=== PATIENT | female | born 2000 | race Caucasian/White ===

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

== ENCOUNTER 2021-09-18 13:11 | Inpatient (IN) | payer BC ==
[~2021-09-18] VITALS: Ht 157.5 cm; Wt 54.9 kg
[2021-09-18] MEDS ORDERED: LATU80TA2 PO (13:36)
[2021-09-18] MEDS ORDERED: ISIB1TAB PO (13:36)
[2021-09-18 14:02] LABS: HEMATOCRIT 38.6 % (36.0-47.0); HEMOGLOBIN 13.1 g/dl (12.0-15.5); MEAN CORPUSCULAR HEMOGLOBIN 29.8 pg (27.0-33.0); MEAN CORPUSCULAR HGB CONC 33.9 g/dl (32.0-36.5); MEAN CORPUSCULAR VOLUME 87.7 fl (80.0-96.0); PLATELET COUNT, AUTOMATED 397 10^3/uL (150-450); WHITE BLOOD COUNT 10.5 10^3/uL (4.0-10.0)
[2021-09-18 14:41] LABS: ALBUMIN 3.9 GM/DL (3.2-5.2); ALT/SGPT 14 U/L (12-78); AMPHETAMINES LEVEL URINE NEGATIVE (NEGATIVE); BARBITURATES URINE NEGATIVE (NEGATIVE); BENZODIAZEPINES URINE NEGATIVE (NEGATIVE); BILIRUBIN,DIRECT 0.1 MG/DL (0.0-0.2); BILIRUBIN,TOTAL 0.5 MG/DL (0.2-1.0); BLOOD UREA NITROGEN 7 MG/DL (7-18); CALCIUM LEVEL 9.8 MG/DL (8.5-10.1); CANNABINOIDS URINE POSITIVE (NEGATIVE); CARBON DIOXIDE LEVEL 29 MEQ/L (21-32); CHLORIDE LEVEL 106 MEQ/L (98-107); COCAINE METABOLITE URINE NEGATIVE (NEGATIVE); CREATININE FOR GFR 0.65 MG/DL (0.55-1.30); GLUCOSE, FASTING 84 MG/DL (70-100); METHADONE URINE NEGATIVE (NEGATIVE); OPIATES URINE NEGATIVE (NEGATIVE); PHENCYCLIDINE URINE NEGATIVE (NEGATIVE); POTASSIUM SERUM 4.1 MEQ/L (3.5-5.1); RSV AMPLIFICATION NEGATIVE (NEGATIVE); SODIUM LEVEL 140 MEQ/L (136-145); TOTAL PROTEIN 7.3 GM/DL (6.4-8.2)
[2021-09-18 14:42] LABS: ACETAMINOPHEN LEVEL < 2.0 UG/ML (10.0-30.0); ETHYL ALCOHOL (ETHANOL) < 0.003 % (0.000-0.010); SALICYLATE LEVEL < 1.7 MG/DL (5.0-30.0)
[2021-09-18 14:46] LABS: HCG, SERUM QUALITATIVE NEGATIVE (NEGATIVE)
[2021-09-18] MEDS ORDERED: HOME MED LIST COMPLETE! XX SCH (18:40)
[2021-09-19] MEDS ORDERED: ACETAMINOPHEN TAB 650MG DOSE (2X325MG) PO PRN (20:30)
[2021-09-19] MEDS ORDERED: NICOTINE 21MG/24HR 1 EA TRANSDERMAL TD PRN (20:30)
[2021-09-19] MEDS ORDERED: MOM 30ML SUSPENSION UDC PO PRN (20:30)
[2021-09-19] MEDS ORDERED: LURASIDONE HCL 40MG TAB (LATUDA) PO SCH ×2 (21:00)
[2021-09-19] MEDS ORDERED: ENTER DRUG NAME HERE (PATIENT'S OWN MED) PO SCH (21:00)
[2021-09-19] MEDS: traZODone 50 MG TAB PO PRN (22:44)
[2021-09-19 22:52] VITALS: BP 126/89
[2021-09-20 06:33] VITALS: BP 117/70
[2021-09-20] MEDS ORDERED: INFLUENZA QUADRIVALENT PF VACCINE 0.5ML SYRINGE IM.IMMUN ONE (09:00)
[2021-09-20] MEDS ORDERED: ISIBLOOM PO SCH (09:00)
[2021-09-20 16:52] VITALS: BP 116/70
[2021-09-20] MEDS: LURASIDONE HCL 40MG TAB (LATUDA) PO SCH (17:23)
[2021-09-20] MEDS: LURASIDONE 20 MG TAB (LATUDA) PO SCH (17:23)
[2021-09-20] MEDS ORDERED: ONDANSETRON 4MG TAB PO ONE (18:45)
[2021-09-20] MEDS: hydrOXYzine 50 MG TAB PO PRN (19:50)
[2021-09-20] MEDS: busPIRone 5 MG TAB PO SCH (21:53)
[2021-09-20] MEDS: traZODone 50 MG TAB PO PRN (21:53)
[2021-09-21 07:24] VITALS: BP 118/58
[2021-09-21] MEDS: busPIRone 5 MG TAB PO SCH ×2 (09:41→21:56)
[2021-09-21] MEDS: hydrOXYzine 50 MG TAB PO PRN ×2 (13:24→21:57)
[2021-09-21 17:46] VITALS: BP 114/67
[2021-09-21] MEDS: LURASIDONE HCL 40MG TAB (LATUDA) PO SCH (17:57)
[2021-09-21] MEDS: LURASIDONE 20 MG TAB (LATUDA) PO SCH (17:57)
[2021-09-21] MEDS: ISIBLOOM PO SCH (21:56)
[2021-09-21] MEDS: traZODone 50 MG TAB PO PRN (21:57)
[2021-09-22 07:05] VITALS: BP 115/65
[2021-09-22] MEDS: busPIRone 5 MG TAB PO SCH ×2 (08:43→20:38)
[2021-09-22] MEDS: hydrOXYzine 50 MG TAB PO PRN ×2 (09:49→16:48)
[2021-09-22 16:49] VITALS: BP 117/70
[2021-09-22] MEDS: LURASIDONE HCL 40MG TAB (LATUDA) PO SCH (18:04)
[2021-09-22] MEDS: LURASIDONE 20 MG TAB (LATUDA) PO SCH (18:04)
[2021-09-22] MEDS: ISIBLOOM PO SCH (20:38)
[2021-09-22] MEDS: traZODone 50 MG TAB PO PRN (20:39)
[2021-09-23 07:04] VITALS: BP 112/54
[2021-09-23] MEDS: busPIRone 5 MG TAB PO SCH (08:23)
[2021-09-23] MEDS: hydrOXYzine 50 MG TAB PO PRN ×2 (11:42→17:55)
[2021-09-23 16:39] VITALS: BP 114/71
[2021-09-23] MEDS: LURASIDONE HCL 40MG TAB (LATUDA) PO SCH (17:55)
[2021-09-23] MEDS: ISIBLOOM PO SCH (20:16)
[2021-09-23] MEDS: busPIRone 10 MG TAB PO SCH (20:16)
[2021-09-23] MEDS: traZODone 50 MG TAB PO PRN (20:16)
[2021-09-24 07:10] VITALS: BP 102/57
[2021-09-24] MEDS: busPIRone 10 MG TAB PO SCH ×2 (08:16→20:09)
[2021-09-24] MEDS ORDERED: PRAZOSIN 1 MG CAP PO PRN (10:35)
[2021-09-24] MEDS: hydrOXYzine 50 MG TAB PO PRN (11:16)
[2021-09-24 16:40] VITALS: BP 122/81
[2021-09-24] MEDS: LURASIDONE HCL 40MG TAB (LATUDA) PO SCH (17:39)
[2021-09-24 20:09] VITALS: BP 122/81
[2021-09-24] MEDS: ISIBLOOM PO SCH (20:09)
[2021-09-24] MEDS: traZODone 50 MG TAB PO PRN (20:09)
[2021-09-25 06:34] VITALS: BP 114/58
[2021-09-25] MEDS: busPIRone 10 MG TAB PO SCH (08:20)
[2021-09-25] MEDS: hydrOXYzine 50 MG TAB PO PRN (10:00)
[2021-09-25] MEDS ORDERED: TRAZ-252 PO (14:24)
[2021-09-25] MEDS ORDERED: LATU40TA2 PO (14:24)
[2021-09-25] MEDS ORDERED: BUSP10TA PO (14:24)
[2021-09-25] MEDS ORDERED: NICO21PAT TD (14:24)
[2021-09-25] MEDS ORDERED: HYDR50TA70 PO (14:24)
[2021-09-25] MEDS ORDERED: MINI1CAP PO (14:24)
== END 2021-09-25 16:08 | disposition home or self-care (01) | DRG 753 ==
LOC: M ED 13:11 → M ED INP 09-19 20:27 → M PSY 09-19 22:17
PROVIDERS: ADMIT Psychiatry & Neurology Psychiatry; ATTEND Psychiatry & Neurology Psychiatry
DX: F31.81 Bipolar II disorder (principal); F60.3 Borderline personality disorder; F17.290 Nicotine dependence, other tobacco product, uncomplicated; F41.9 Anxiety disorder, unspecified; Z91.52 Personal history of nonsuicidal self-harm; R45.851 Suicidal ideations; Z63.0 Problems in relationship with spouse or partner; Z20.822 Contact with and (suspected) exposure to COVID-19; Z79.899 Other long term (current) drug therapy

== ENCOUNTER → 2022-03-30 | Outpatient (REF) | payer BC ==
[~2022-03-30] MED LIST: BUSP10TA PO; HYDR50TA70 PO; ISIB1TAB PO; LATU40TA2 PO; LATU80TA2 PO; MINI1CAP PO; NICO21PAT TD; TRAZ-252 PO
[2022-03-30 12:33] LABS: HEMATOCRIT 40.8 % (36.0-47.0); HEMOGLOBIN 13.4 g/dl (12.0-15.5); MEAN CORPUSCULAR HEMOGLOBIN 29.6 pg (27.0-33.0); MEAN CORPUSCULAR HGB CONC 32.8 g/dl (32.0-36.5); MEAN CORPUSCULAR VOLUME 90.3 fl (80.0-96.0); PLATELET COUNT, AUTOMATED 404 10^3/uL (150-450); RED BLOOD COUNT 4.52 10^6/uL (4.00-5.40); WHITE BLOOD COUNT 10.6 10^3/uL (4.0-10.0)
[2022-03-30 12:35] LABS: ALBUMIN 3.6 G/DL (3.2-5.2); ALKALINE PHOSPHATASE 51 U/L (46-116); ALT/SGPT 12 U/L (7.0-40); AST/SGOT 15 U/L (<34); BILIRUBIN,TOTAL 0.4 MG/DL (0.3-1.2); BLOOD UREA NITROGEN 10 MG/DL (9-23); CALCIUM LEVEL 9.8 MG/DL (8.5-10.1); CARBON DIOXIDE LEVEL 25 MMOL/L (20-31); CHLORIDE LEVEL 104 MMOL/L (98-107); CREATININE FOR GFR 0.58 MG/DL (0.55-1.30); GLUCOSE, FASTING 87 MG/DL (60-100); LITHIUM LEVEL < 1.00 MEQ/L (0.60-1.20); POTASSIUM SERUM 4.7 MMOL/L (3.5-5.1); SODIUM LEVEL 140 MMOL/L (136-145)
[2022-03-30 12:36] LABS: THYROID STIMULATING HORMONE 4.188 uIU/ML (0.48-4.17)
[2022-03-30 12:37] LABS: FREE T4 1.24 NG/DL (0.83-1.43)
== END ==
LOC: M LABDRAWC 11:49
PROVIDERS: ATTEND Psychiatry & Neurology Psychiatry
DX: F31.81 Bipolar II disorder (principal); F12.99 Cannabis use, unspecified with unspecified cannabis-induced disorder

== ENCOUNTER → 2022-04-13 | Outpatient (REF) | payer BC | LOC: M LABDRAWC 11:35 | PROVIDERS: ATTEND Psychiatry & Neurology Psychiatry | DX: F31.81 Bipolar II disorder (principal); F12.99 Cannabis use, unspecified with unspecified cannabis-induced disorder ==

== ENCOUNTER 2022-06-08 14:34 | Emergency (ER) | payer BC ==
[~2022-06-08] VITALS: Ht 157.5 cm; Wt 59.8 kg
[2022-06-08] MEDS ORDERED: LITH300C PO (14:52)
[2022-06-08] MEDS ORDERED: LITH150C PO (14:52)
[2022-06-08] MEDS ORDERED: HOME MED LIST COMPLETE! XX SCH (16:15)
[2022-06-08 17:08] VITALS: BP 145/90
== END 2022-06-08 17:08 | disposition home or self-care (01) ==
LOC: M ED 14:34
DX: F31.9 Bipolar disorder, unspecified (principal); F12.10 Cannabis abuse, uncomplicated; Z79.83 Long term (current) use of bisphosphonates; Z79.899 Other long term (current) drug therapy

== ENCOUNTER 2022-06-17 11:44 | Inpatient (IN) | payer BC ==
[~2022-06-17] VITALS: Ht 157.5 cm; Wt 51.8 kg
[~2022-06-17 11:44] MED LIST changes: +LITH150C PO; +LITH300C PO; +LITHIUM CARBONATE 150 MG CAP PO SCH
[2022-06-17 12:17] LABS: HEMATOCRIT 37.3 % (36.0-47.0); HEMOGLOBIN 12.5 g/dl (12.0-15.5); MEAN CORPUSCULAR HEMOGLOBIN 30.3 pg (27.0-33.0); MEAN CORPUSCULAR HGB CONC 33.5 g/dl (32.0-36.5); MEAN CORPUSCULAR VOLUME 90.3 fl (80.0-96.0); PLATELET COUNT, AUTOMATED 375 10^3/uL (150-450); RED BLOOD COUNT 4.13 10^6/uL (4.00-5.40); WHITE BLOOD COUNT 10.5 10^3/uL (4.0-10.0)
[2022-06-17] MEDS ORDERED: HOME MED LIST COMPLETE! XX SCH (12:45)
[2022-06-17 12:48] LABS: ETHYL ALCOHOL (ETHANOL) < 0.003 % (0.000-0.010)
[2022-06-17 12:50] LABS: ACETAMINOPHEN LEVEL < 2.0 UG/ML (10.0-20.0); SALICYLATE LEVEL < 3.0 MG/DL (<30)
[2022-06-17 12:52] LABS: HCG, SERUM QUALITATIVE NEGATIVE (NEGATIVE)
[2022-06-17 12:54] LABS: ALBUMIN 3.7 G/DL (3.2-5.2); ALKALINE PHOSPHATASE 51 U/L (46-116); ALT/SGPT 11 U/L (7.0-40); AST/SGOT 11 U/L (<34); BILIRUBIN,DIRECT 0.2 MG/DL (<0.4); BILIRUBIN,TOTAL 0.6 MG/DL (0.3-1.2); BLOOD UREA NITROGEN 8 MG/DL (9-23); CALCIUM LEVEL 9.5 MG/DL (8.5-10.1); CARBON DIOXIDE LEVEL 26 MMOL/L (20-31); CHLORIDE LEVEL 100 MMOL/L (98-107); CREATININE FOR GFR 0.58 MG/DL (0.55-1.30); GLOMERULAR FILTRATION RATE > 60.0 (>60); GLUCOSE, FASTING 148 MG/DL (60-100); POTASSIUM SERUM 3.4 MMOL/L (3.5-5.1); SODIUM LEVEL 135 MMOL/L (136-145); TOTAL PROTEIN 6.7 G/DL (5.7-8.2)
[2022-06-17 12:57] LABS: THYROID STIMULATING HORMONE 1.643 uIU/ML (0.55-4.78)
[2022-06-17 13:12] LABS: AMPHETAMINES LEVEL URINE NEGATIVE (NEGATIVE); BARBITURATES URINE NEGATIVE (NEGATIVE); BENZODIAZEPINES URINE NEGATIVE (NEGATIVE); COCAINE METABOLITE URINE NEGATIVE (NEGATIVE); METHADONE URINE NEGATIVE (NEGATIVE); OPIATES URINE NEGATIVE (NEGATIVE); PHENCYCLIDINE URINE NEGATIVE (NEGATIVE)
[2022-06-17 13:17] LABS: CANNABINOIDS URINE POSITIVE (NEGATIVE)
[2022-06-17 13:44] LABS: LITHIUM LEVEL 1.31 MMOL/L (0.60-1.20)
[2022-06-17] MEDS ORDERED: LITHIUM CARBONATE 150 MG CAP PO SCH (21:00)
[2022-06-17] MEDS ORDERED: ACETAMINOPHEN TAB 650MG DOSE (2X325MG) PO PRN (21:55)
[2022-06-17] MEDS ORDERED: MAALOX 30 ML SUSP *UDC PO PRN (21:55)
[2022-06-17] MEDS ORDERED: MOM 30ML SUSPENSION UDC PO PRN (21:55)
[2022-06-17] MEDS ORDERED: OLANZapine ORAL DISINTEGRATING TAB 5MG PO PRN (21:55)
[2022-06-17 23:55] VITALS: BP 138/96
[2022-06-18 06:56] VITALS: BP 130/68
[2022-06-18] MEDS: LITHIUM CARBONATE 300 MG CAP PO SCH ×2 (11:15→21:34)
[2022-06-18] MEDS: POTASSIUM CHLORIDE 10MEQ SR TABLET PO SCH ×2 (11:17→21:35)
[2022-06-18 17:30] VITALS: BP 132/91
[2022-06-18] MEDS: DESOGESTREL ETHINYL ESTRADIOL PO SCH (21:00)
[2022-06-18] MEDS: traZODone 50 MG TAB PO PRN (21:34)
[2022-06-19 06:08] VITALS: BP 106/53
[2022-06-19 06:52] LABS: CHOLESTEROL RISK RATIO 2.1 (<5); HDL CHOLESTEROL 73.5 MG/DL (>40); LDL CHOLESTEROL 59.3 MG/DL (<100)
[2022-06-19] MEDS: LITHIUM CARBONATE 300 MG CAP PO SCH ×2 (09:41→20:33)
[2022-06-19 18:23] VITALS: BP 124/63
[2022-06-19] MEDS: DESOGESTREL ETHINYL ESTRADIOL PO SCH (20:32)
[2022-06-19] MEDS: PRAZOSIN 1 MG CAP PO SCH (20:32)
[2022-06-19] MEDS: traZODone 50 MG TAB PO PRN (20:33)
[2022-06-19 21:00] VITALS: BP 103/60
[2022-06-19 21:29] LABS: BASO # 0.1 10^3/uL (0.0-0.2); BASO % 0.7 % (0.0-1.0); EOS # 0.8 10^3/uL (0.0-0.5); EOS % 7.6 % (0.0-3.0); HEMATOCRIT 36.5 % (36.0-47.0); LYMPH # 4.2 10^3/uL (1.5-5.0); LYMPH % 41.9 % (24.0-44.0); MEAN CORPUSCULAR HEMOGLOBIN 30.5 pg (27.0-33.0); MEAN CORPUSCULAR HGB CONC 32.9 g/dl (32.0-36.5); MEAN CORPUSCULAR VOLUME 92.6 fl (80.0-96.0); MONO # 0.7 10^3/uL (0.0-0.8); MONO % 6.6 % (2.0-8.0); NEUTROPHILS # 4.3 10^3/uL (1.5-8.5); NEUTROPHILS % 42.9 % (36.0-66.0); PLATELET COUNT, AUTOMATED 349 10^3/uL (150-450); RED BLOOD COUNT 3.94 10^6/uL (4.00-5.40)
[2022-06-20 00:27] LABS: BLOOD UREA NITROGEN 8 MG/DL (9-23); CALCIUM LEVEL 9.4 MG/DL (8.5-10.1); CARBON DIOXIDE LEVEL 26 MMOL/L (20-31); CHLORIDE LEVEL 106 MMOL/L (98-107); CREATININE FOR GFR 0.62 MG/DL (0.55-1.30); GLOMERULAR FILTRATION RATE > 60.0 (>60); GLUCOSE, FASTING 128 MG/DL (60-100); LITHIUM LEVEL 0.93 MMOL/L (0.60-1.20); MAGNESIUM LEVEL 1.9 MG/DL (1.8-2.4); SODIUM LEVEL 139 MMOL/L (136-145)
[2022-06-20 06:36] VITALS: BP 104/66
[2022-06-20] MEDS: LITHIUM CARBONATE 300 MG CAP PO SCH ×2 (09:32→20:55)
[2022-06-20 17:34] VITALS: BP 130/82
[2022-06-20] MEDS: DESOGESTREL ETHINYL ESTRADIOL PO SCH (20:55)
[2022-06-20] MEDS: PRAZOSIN 1 MG CAP PO SCH (20:55)
[2022-06-20] MEDS: traZODone 50 MG TAB PO PRN (20:55)
[2022-06-21 06:45] VITALS: BP 130/63
[2022-06-21] MEDS: LITHIUM CARBONATE 300 MG CAP PO SCH ×2 (08:47→21:28)
[2022-06-21 18:07] VITALS: BP 142/96
[2022-06-21 21:28] VITALS: BP 142/96
[2022-06-21] MEDS: PRAZOSIN 1 MG CAP PO SCH (21:28)
[2022-06-21] MEDS: traZODone 50 MG TAB PO PRN (21:28)
[2022-06-21] MEDS: DESOGESTREL ETHINYL ESTRADIOL PO SCH (21:29)
[2022-06-22 06:40] VITALS: BP 136/70
[2022-06-22] MEDS: LITHIUM CARBONATE 300 MG CAP PO SCH (09:29)
[2022-06-22] MEDS ORDERED: TRAZ-252 PO (11:06)
[2022-06-22] MEDS ORDERED: MINI1CAP PO (11:06)
[2022-06-22] MEDS ORDERED: LITH300C PO (11:06)
== END 2022-06-22 13:51 | disposition home or self-care (01) | DRG 753 ==
LOC: M ED 11:44 → M ED INP 21:53 → M PSY 23:39
PROVIDERS: ADMIT Psychiatry & Neurology Psychiatry; ATTEND Student in an Organized Health Care Education/Training Program
DX: F31.81 Bipolar II disorder (principal); R45.851 Suicidal ideations; F60.3 Borderline personality disorder; E87.6 Hypokalemia; F43.10 Post-traumatic stress disorder, unspecified; F12.90 Cannabis use, unspecified, uncomplicated; F17.290 Nicotine dependence, other tobacco product, uncomplicated; Z79.899 Other long term (current) drug therapy; F41.9 Anxiety disorder, unspecified; Z20.822 Contact with and (suspected) exposure to COVID-19; Z91.51 Personal history of suicidal behavior; Z91.52 Personal history of nonsuicidal self-harm

== ENCOUNTER 2022-07-07 11:00 | Inpatient (IN) | payer BC ==
[~2022-07-07] VITALS: Ht 160 cm; Wt 56.1 kg
[~2022-07-07 11:00] MED LIST changes: -LITHIUM CARBONATE 150 MG CAP PO SCH
[2022-07-07 12:05] LABS: HEMATOCRIT 39.7 % (36.0-47.0); HEMOGLOBIN 13.2 g/dl (12.0-15.5); MEAN CORPUSCULAR HEMOGLOBIN 30.4 pg (27.0-33.0); MEAN CORPUSCULAR HGB CONC 33.2 g/dl (32.0-36.5); MEAN CORPUSCULAR VOLUME 91.5 fl (80.0-96.0); PLATELET COUNT, AUTOMATED 411 10^3/uL (150-450); RED BLOOD COUNT 4.34 10^6/uL (4.00-5.40); WHITE BLOOD COUNT 14.6 10^3/uL (4.0-10.0)
[2022-07-07 12:35] LABS: AMPHETAMINES LEVEL URINE NEGATIVE (NEGATIVE); BARBITURATES URINE NEGATIVE (NEGATIVE); BENZODIAZEPINES URINE NEGATIVE (NEGATIVE); COCAINE METABOLITE URINE NEGATIVE (NEGATIVE); METHADONE URINE NEGATIVE (NEGATIVE); OPIATES URINE NEGATIVE (NEGATIVE); PHENCYCLIDINE URINE NEGATIVE (NEGATIVE)
[2022-07-07 12:37] LABS: ETHYL ALCOHOL (ETHANOL) < 0.003 % (0.000-0.010)
[2022-07-07 12:39] LABS: ACETAMINOPHEN LEVEL < 2.0 UG/ML (10.0-20.0); SALICYLATE LEVEL < 3.0 MG/DL (<30)
[2022-07-07 12:43] LABS: ALBUMIN 3.7 G/DL (3.2-5.2); ALKALINE PHOSPHATASE 51 U/L (46-116); ALT/SGPT 10 U/L (7.0-40); AST/SGOT 13 U/L (<34); BILIRUBIN,DIRECT 0.2 MG/DL (<0.4); BILIRUBIN,TOTAL 0.7 MG/DL (0.3-1.2); BLOOD UREA NITROGEN 6 MG/DL (9-23); CALCIUM LEVEL 9.4 MG/DL (8.5-10.1); CARBON DIOXIDE LEVEL 23 MMOL/L (20-31); CHLORIDE LEVEL 104 MMOL/L (98-107); CREATININE FOR GFR 0.63 MG/DL (0.55-1.30); GLOMERULAR FILTRATION RATE > 60.0 (>60); GLUCOSE, FASTING 90 MG/DL (60-100); POTASSIUM SERUM 3.7 MMOL/L (3.5-5.1); SODIUM LEVEL 137 MMOL/L (136-145); THYROID STIMULATING HORMONE 1.121 uIU/ML (0.55-4.78)
[2022-07-07 12:44] LABS: CANNABINOIDS URINE POSITIVE (NEGATIVE)
[2022-07-07 12:45] LABS: HCG, SERUM QUALITATIVE NEGATIVE (NEGATIVE)
[2022-07-07] MEDS ORDERED: LITH300C PO (19:31)
[2022-07-07] MEDS ORDERED: PRAZ1CAP PO (19:31)
[2022-07-07] MEDS ORDERED: TRAZ-252 PO (19:31)
[2022-07-07] MEDS ORDERED: HOME MED LIST COMPLETE! XX SCH (19:35)
[2022-07-07] MEDS ORDERED: traZODone 50 MG TAB PO ONE (22:05)
[2022-07-08] MEDS: LITHIUM CARBONATE 300 MG CAP PO SCH (09:35)
[2022-07-08] MEDS ORDERED: PRAZOSIN 1 MG CAP PO SCH (21:00)
[2022-07-09] MEDS: NICOTINE 14 MG/24 HR TRANSDERMAL TD SCH (09:00)
[2022-07-09] MEDS: LITHIUM CARBONATE 300 MG CAP PO SCH ×2 (09:06→22:51)
[2022-07-09] MEDS ORDERED: MAALOX 30 ML SUSP *UDC PO PRN (14:20)
[2022-07-09] MEDS ORDERED: MOM 30ML SUSPENSION UDC PO PRN (14:20)
[2022-07-09] MEDS ORDERED: IBUPROFEN 400MG TAB PO PRN (14:20)
[2022-07-09 22:12] VITALS: BP 128/78
[2022-07-09] MEDS: PRAZOSIN 1 MG CAP PO SCH (22:51)
[2022-07-09] MEDS: traZODone 50 MG TAB PO PRN (22:52)
[2022-07-10 06:40] VITALS: BP 118/65
[2022-07-10] MEDS: LITHIUM CARBONATE 300 MG CAP PO SCH ×2 (08:35→22:07)
[2022-07-10] MEDS: NICOTINE 14 MG/24 HR TRANSDERMAL TD SCH (08:35)
[2022-07-10] MEDS ORDERED: INFLUENZA QUADRIVALENT PF VACCINE 0.5ML SYRINGE IM.IMMUN ONE (09:00)
[2022-07-10 09:37] LABS: BASO # 0.1 10^3/uL (0.0-0.2); BASO % 0.7 % (0.0-1.0); EOS # 0.6 10^3/uL (0.0-0.5); EOS % 5.1 % (0.0-3.0); HEMOGLOBIN 13.8 g/dl (12.0-15.5); LYMPH # 3.8 10^3/uL (1.5-5.0); MEAN CORPUSCULAR HEMOGLOBIN 29.8 pg (27.0-33.0); MEAN CORPUSCULAR HGB CONC 32.9 g/dl (32.0-36.5); MEAN CORPUSCULAR VOLUME 90.7 fl (80.0-96.0); MONO % 7.8 % (2.0-8.0); PLATELET COUNT, AUTOMATED 434 10^3/uL (150-450); RED BLOOD COUNT 4.63 10^6/uL (4.00-5.40); WHITE BLOOD COUNT 12.6 10^3/uL (4.0-10.0)
[2022-07-10 16:22] VITALS: BP 128/76
[2022-07-10] MEDS: PRAZOSIN 1 MG CAP PO SCH (22:08)
[2022-07-10] MEDS: traZODone 50 MG TAB PO PRN (22:08)
[2022-07-11 06:38] VITALS: BP 120/62
[2022-07-11] MEDS: NICOTINE 14 MG/24 HR TRANSDERMAL TD SCH (09:00)
[2022-07-11] MEDS: LITHIUM CARBONATE 300 MG CAP PO SCH ×2 (09:25→21:57)
[2022-07-11] MEDS: PRAZOSIN 1 MG CAP PO SCH (21:57)
[2022-07-11] MEDS: traZODone 50 MG TAB PO PRN (21:57)
[2022-07-12 06:12] VITALS: BP 141/74
[2022-07-12] MEDS: NICOTINE 14 MG/24 HR TRANSDERMAL TD SCH (09:00)
[2022-07-12] MEDS: LITHIUM CARBONATE 300 MG CAP PO SCH ×2 (09:53→22:02)
[2022-07-12 19:10] VITALS: BP 123/83
[2022-07-12 22:01] VITALS: BP 124/76
[2022-07-12] MEDS: PRAZOSIN 1 MG CAP PO SCH (22:01)
[2022-07-12] MEDS: traZODone 50 MG TAB PO PRN (22:02)
[2022-07-13 06:16] VITALS: BP 127/72
[2022-07-13] MEDS: NICOTINE 14 MG/24 HR TRANSDERMAL TD SCH (09:00)
[2022-07-13] MEDS: LITHIUM CARBONATE 300 MG CAP PO SCH (09:38)
== END 2022-07-13 12:38 | disposition home or self-care (01) | DRG 753 ==
LOC: M ED 11:00 → M ED INP 07-09 14:17 → M PSY 07-09 22:14
PROVIDERS: ADMIT Psychiatry & Neurology Psychiatry; ATTEND Psychiatry & Neurology Psychiatry
DX: F31.81 Bipolar II disorder (principal); F60.3 Borderline personality disorder; F17.290 Nicotine dependence, other tobacco product, uncomplicated; Z81.1 Family history of alcohol abuse and dependence; R45.851 Suicidal ideations; Z81.8 Family history of other mental and behavioral disorders; Z79.899 Other long term (current) drug therapy; Z91.52 Personal history of nonsuicidal self-harm; Z20.822 Contact with and (suspected) exposure to COVID-19

== ENCOUNTER → 2022-09-24 | Outpatient (REF) | payer BC ==
[~2022-09-24] MED LIST changes: +PRAZ1CAP PO
== END ==
LOC: M SFHCCLAY 07:29
PROVIDERS: ATTEND Family Medicine
DX: F41.9 Anxiety disorder, unspecified (principal); R79.89 Other specified abnormal findings of blood chemistry; F31.81 Bipolar II disorder; F60.3 Borderline personality disorder; Z53.9 Procedure and treatment not carried out, unspecified reason

== ENCOUNTER → 2022-09-26 | Outpatient (REF) | payer BC ==
[2022-09-26 17:51] LABS: BASO # 0.1 10^3/uL (0.0-0.2); BASO % 0.8 % (0.0-1.0); EOS # 0.5 10^3/uL (0.0-0.5); EOS % 4.4 % (0.0-3.0); HEMATOCRIT 37.1 % (36.0-47.0); HEMOGLOBIN 11.9 g/dl (12.0-15.5); HEMOGLOBIN A1c 4.7 % (4.0-6.0); LYMPH # 2.9 10^3/uL (1.5-5.0); LYMPH % 26.5 % (24.0-44.0); MEAN CORPUSCULAR HEMOGLOBIN 29.2 pg (27.0-33.0); MEAN CORPUSCULAR HGB CONC 32.1 g/dl (32.0-36.5); MEAN CORPUSCULAR VOLUME 91.2 fl (80.0-96.0); MONO # 0.8 10^3/uL (0.0-0.8); MONO % 7.1 % (2.0-8.0); NEUTROPHILS # 6.5 10^3/uL (1.5-8.5); NEUTROPHILS % 60.8 % (36.0-66.0); PLATELET COUNT, AUTOMATED 389 10^3/uL (150-450); RED BLOOD COUNT 4.07 10^6/uL (4.00-5.40); WHITE BLOOD COUNT 10.7 10^3/uL (4.0-10.0)
[2022-09-26 18:15] LABS: THYROID STIMULATING HORMONE 1.557 uIU/ML (0.55-4.78)
[2022-09-26 18:16] LABS: ALBUMIN 3.7 G/DL (3.2-5.2); ALKALINE PHOSPHATASE 65 U/L (46-116); ALT/SGPT 11 U/L (7.0-40); AST/SGOT 14 U/L (<34); BILIRUBIN,TOTAL 0.4 MG/DL (0.3-1.2); BLOOD UREA NITROGEN 7 MG/DL (9-23); CALCIUM LEVEL 8.6 MG/DL (8.5-10.1); CARBON DIOXIDE LEVEL 24 MMOL/L (20-31); CHLORIDE LEVEL 108 MMOL/L (98-107); CHOLESTEROL LEVEL 127 MG/DL (<200); CHOLESTEROL RISK RATIO 1.58 (<5); CREATININE FOR GFR 0.49 MG/DL (0.55-1.30); GLOMERULAR FILTRATION RATE > 60.0 (>60); GLUCOSE, FASTING 95 MG/DL (60-100); LDL CHOLESTEROL 38.6 MG/DL (<100); SODIUM LEVEL 137 MMOL/L (136-145); TOTAL PROTEIN 6.1 G/DL (5.7-8.2); TRIGLYCERIDES LEVEL 42 MG/DL (<150)
[2022-09-26 18:17] LABS: FREE T4 1.01 NG/DL (0.89-1.76); LITHIUM LEVEL < 0.20 MMOL/L (0.60-1.20)
== END ==
LOC: M SFHCCLAY 10:51
PROVIDERS: ATTEND Family Medicine
DX: F41.9 Anxiety disorder, unspecified (principal); R79.89 Other specified abnormal findings of blood chemistry; F60.3 Borderline personality disorder; F32.0 Major depressive disorder, single episode, mild